=== PATIENT | male | born 1965 | race African-American/Black ===

== ENCOUNTER 2018-01-05 00:30 | Emergency (ER) | payer OTHER ==
[~2018-01-05] VITALS: Ht 180.3 cm; Wt 99.8 kg
[2018-01-05] MEDS ORDERED: Bacitracin Oint UD TOPIC ONE (01:15)
[2018-01-05] MEDS ORDERED: Norco 5mg/325mg tab ORAL ONE (01:15)
[2018-01-05] MEDS ORDERED: FUROSEMIDE20 M1 ORAL (02:00)
[2018-01-05] MEDS ORDERED: AMOXICILLIN500 MG ORAL (02:00)
[2018-01-05] MEDS ORDERED: BACITRACIN15 GM TOPIC (02:00)
[2018-01-05 02:33] VITALS: BP 137/78
--- NOTE | 2018-01-05 02:59 | Emergency Room Report ---
History of Present Illness General Chief Complaint: Pain Source: Patient Present Illness HPI 52-year-old male presents ED for evaluation. Patient brought in by EMS. Patient states there is a wound on his left foot. Has been there for several months now. States it was initially worse and has gotten somewhat better. Patient is also complaining of swelling to his bilateral legs. Denies chest pain or shortness of breath. Denies fevers or chills. States he's had a persisting cough for several weeks now. Cough with yellowish sputum. No other aggravating relieving factors. Denies any other associated symptoms Allergies: Coded Allergies: No Known Allergies (Unverified , 01/05/18) Patient History Past Medical History: HTN Past Surgical History: none Pertinent Family History: none Social History: Denies: smoking, alcohol use, drug use Immunizations: UTD Reviewed Nursing Documentation: PMH: Agreed; PSxH: Agreed Nursing Documentation-PMH Hx Hypertension: Yes Review of Systems All Other Systems: negative except mentioned in HPI Physical Exam Vital Signs Date Time Temp Pulse Resp B/P (MAP) Pulse Ox O2 Delivery O2 Flow Rate FiO2 01/05/18 00:37 98.8 82 16 160/100 99 Room Air 98.8 Sp02 EP Interpretation: reviewed, normal General Appearance: no apparent distress, alert, GCS 15, non-toxic Head: normocephalic, atraumatic Eyes: bilateral eye normal inspection, bilateral eye PERRL ENT: hearing grossly normal, normal pharynx, no angioedema, normal voice Neck: full range of motion, supple/symm/no masses Respiratory: chest non-tender, lungs clear, normal breath sounds, speaking full sentences Cardiovascular #1: regular rate, rhythm, no edema Cardiovascular #2: 2+ carotid (R), 2+ carotid (L), 2+ radial (R), 2+ radial (L) , 2+ dorsalis pedis (R), 2+ dorsalis pedis (L) Gastrointestinal: normal bowel sounds, non tender, soft, non-distended, no guarding, no rebound Rectal: deferred Genitourinary: normal inspection, no CVA tenderness Musculoskeletal: back normal, gait/station normal, normal range of motion, swelling - 1+ pitting edema b/l LEs Neurologic: alert, oriented x3, responsive, motor strength/tone normal, sensory intact, speech normal Psychiatric: judgement/insight normal, memory normal, mood/affect normal, no suicidal/homicidal ideation Reflexes: 3+ bicep (R), 3+ bicep (L), 3+ tricep (R), 3+ tricep (L), 3+ knee (R) , 3+ knee (L) Skin: normal color, warm/dry, well hydrated, other - healing ulcer to dorsum L foot. no erythema/induration/discharge Lymphatic: no adenopathy Medical Decision Making Diagnostic Impression: Primary Impression: Pedal edema Additional Impression: Encounter for change of dressing ER Course Hospital Course 52 yo M presents to ED with wound to L foot Differential diagnoses include: Cellulitis, dermatitis, insect bite, abscess Clinical course Patient placed on stretcher. After initial history, physical exam reveals a middle aged male in no acute distress. On exam there is evidence of a healing ulcer to the dorsum of the left foot. No signs of skin breakdown. No erythema or induration. No discharge. There is 1+ pitting edema to both legs. No Tenderness. Lungs clear. No chest pain. Vital stable. no signs of CHF Discussed findings with the patient. We'll prescribe low-dose Lasix for his pedal edema. We'll change dressing and apply bacitracin to his foot wound. Lungs clear, however given chronicity of cough we'll also prescribe antibiotics. Diagnosis - pedal edema, encounter for change of dressing stable and discharged to home with prescription for amoxicilin, bacitracin, lasix. Instructed to followup with PMD. Instructed return to ED if symptoms recur or worsen Last Vital Signs Date Time Temp Pulse Resp B/P (MAP) Pulse Ox O2 Delivery O2 Flow Rate FiO2 01/05/18 02:33 97.6 77 18 137/78 98 Room Air 97.6 Status: improved Disposition: HOME, SELF-CARE Condition: Stable Scripts Amoxicillin* (AMOXIL*) 500 Mg Capsule 500 MG ORAL THREE TIMES A DAY, #21 CAP Prov: Enrrique Walton MD 01/05/18 Furosemide* (LASIX*) 20 Mg Tablet 20 MG ORAL DAILY, #30 TAB Prov: Enrrique Walton MD 01/05/18 Bacitracin (Bacitracin) 28.4 Gm Oint...g. 1 APPLIC TOPIC THREE TIMES A DAY, #28.4 GM Prov: Enrrique Walton MD 01/05/18 Patient Instructions: Edema, [id number] Enrrique Walton MD Jan 05, 2018 02:59
[2018-01-05 05:02] VITALS: BP 138/81
[2018-01-05 05:15] VITALS: BP 138/81
== END 2018-01-05 05:21 | disposition home or self-care (01) ==
LOC: EDBD 00:30 → EMR 00:54
DX: R60.9 Edema, unspecified (principal); I10 Essential (primary) hypertension; R05 Cough; L97.529 Non-pressure chronic ulcer of other part of left foot with unspecified severity
CPT/HCPCS: 99284